=== PATIENT | male | born 1970 | race Caucasian/White ===

== ENCOUNTER 2021-02-02 10:17 | Outpatient (REF) | payer BC, SELFPAY ==
[2021-02-03 13:31] LABS: Immunoglobulin A 458 mg/dL (47-310)
[2021-02-03 21:36] LABS: Gliadin Deamidated IgA Ab 23 Units; Gliadin Deamidated IgG Ab 3 Units
[2021-02-03 21:41] LABS: Transglutaminase Ab IgG 4 U/mL; Transglutaminase IgA 3 U/mL
[2021-02-05 22:52] LABS: Endomysial IgA Antibody Negative (Negative)
== END 2021-02-02 10:18 | disposition home or self-care (01) ==
LOC: HO.10HDL 10:17
PROVIDERS: Internal Medicine; Visit Provider Dentist Oral and Maxillofacial Surgery
DX: K58.9 Irritable bowel syndrome, unspecified (principal)
CPT/HCPCS: 36415; 82784; 83516; 86255; 86256

== ENCOUNTER 2021-03-08 06:21 | Day surgery (SDC) | payer BC, SELFPAY ==
[2021-03-02 13:53] VITALS: BMI 29.4
[2021-03-08 06:35] VITALS: BP 133/85; PULSE 72; RESP 18; TEMP 36.6; O2SAT 97
[2021-03-08] MEDS: Lactated Ringers 1,000 ML 100 ML IVCONT (06:47)
--- NOTE | 2021-03-08 07:35 | P.CONAN_ITS ---
HPI - Anesthesia Eval Consult details Narrative: 50yo male patient for EGD, Colonoscopy [facility] Past Medical History Medical History (Updated 03/02/21 @ 13:51 by Carey Gama RN) Diverticulitis GERD (gastroesophageal reflux disease) History of cleft palate History of COVID-19 HTN (hypertension) Hypothyroid IBS (irritable bowel syndrome) Lyme disease Skin cancer Functional capacity: wheelchair bound Family History Family history of problems with anesthesia: No Surgical History Surgical History (Updated 03/02/21 @ 13:51 by Carey Gama RN) H/O colonoscopy History of esophagogastroduodenoscopy (EGD) History of Problems with Anesthesia: No Social History Social History Patient Tobacco Use Status: Never used Tobacco Use of substances other than those prescribed or required for medical reasons: No Have you been hit, kicked, punched, or otherwise hurt by someone within the past year? If so, by whom?: No Are you DNR?: No Advance Directives: No Advance Directives Information Provided: Yes Recently lost weight without trying: No Nutrition Risks: No Nutritional Risk Poor oral hygiene: No Meds Allergies Allergy/AdvReac Type Severity Reaction Status Date / Time No Known Allergies Allergy Verified 03/02/21 13:56 Active Medications: Current Medications Sodium Biphosphate/Sodium Phosphate (Sodium Phosphate,[place]-Dibasic 133 Ml Enema) 133 ml IA ONCE PRN PRN Reason: Poor Colonoscopy Prep Results Home Medications Medication Instructions Recorded Confirmed Last Taken Type amlodipine 5 mg tablet 5 mg PO DAILY 03/02/21 03/02/21 03/08/21 History levothyroxine 75 mcg tablet 75 mcg PO DAILY 03/02/21 03/02/21 Unknown History omeprazole 20 mg tablet,delayed 20 mg PO DAILY 03/02/21 03/02/21 Unknown History release Exam Exam Date and Time: March 08, 2021 0735 Height,Weight and Vital Signs: Height 5 ft 6.5 in Weight 83.915 kg Last Vital Signs Temp 97.8 F 03/08/21 06:35 Pulse 72 03/08/21 06:35 Resp 18 03/08/21 06:35 BP 133/85 03/08/21 06:35 Pulse Ox 97 03/08/21 06:35 Airway Mallampati Class: III (Overbite, narrow palate, crowding of teeth ? broken tooth top right back. Small mouth- may be difficult to intubate) TM Dist: >3cm Neck ROM: Full Heart: RRR Lungs: CTAB Assessment and Plan Assessment Anesthesia Assessment: Anesthesia Plan Discussed and Chart Reviewed Final Anesthetic Review Family History of Problems with Anesthesia: No History of Problems with Anesthesia: No NPO: Yes ASA Class: II Final Preanesthetic Review: No Changes in Pt Med Stat, Meds/Allgs Chart Reviewed, Consent Obtained/Reviewed and Anes Risks/Benef Reviewed Patient Risk: Low Procedure Risk: Low Assessment/Block/Sedation in SS: Assess/Block/Sedation-SS Anesthetic Plan Anesthetic Plan: MAC: Disposition: Standard PACU
[2021-03-08 08:41] VITALS: BP 118/65; PULSE 80; RESP 16; TEMP 36.9; O2SAT 98
--- NOTE | 2021-03-08 08:47 | P.BOP_ITS ---
Brief Operative Note Date of Service: 03/08/21 Pre-op diagnosis: GERD, Screening Post-op diagnosis: other (Gastric ulcer, GERD, Diverticulosis) Procedure: EGD with biopsies, Colonoscopy to the cecum Surgeon: Elder Vasquez Anesthesia: MAC Was an Injection Machine Operator used for this Procedure?: No Estimated blood loss (mL): 3.0 Pathology: other (A. Descending duodenum B. Gastric antral ulcer C. Gastric antrum D. EG Junction at 36cm) Condition: stable Disposition: PACU
[2021-03-08 08:56] VITALS: BP 100/72; PULSE 64; RESP 16; O2SAT 97
[2021-03-08 09:09] VITALS: BP 93/67; PULSE 83; RESP 16; TEMP 36.1; O2SAT 95
--- NOTE | 2021-03-08 09:26 | OP_ITS ---
SURGEON: Elder Vasquez MD INDICATIONS: The patient presents for evaluation of gastroesophageal reflux, question of celiac disease, personal history of tubular adenoma of the colon, and colorectal cancer screening. Full consent has been obtained from him for both procedures, including risks of bleeding and perforation. PREOPERATIVE DIAGNOSIS: POSTOPERATIVE DIAGNOSIS: PROCEDURE PERFORMED: ESTIMATED BLOOD LOSS: COMPLICATIONS: ANESTHESIA: Medication used, monitored anesthesia care. ASSISTANTS: SPECIMENS: PREOPERATIVE DIAGNOSES: Gastroesophageal reflux, question of celiac disease, personal history of tubular adenoma of the colon, and colorectal cancer screening. POSTOPERATIVE DIAGNOSES: Gastroesophageal reflux, question of celiac disease, personal history of tubular adenoma of the colon, and colorectal cancer screening, hiatal hernia, gastric ulcer, diverticulosis, and internal hemorrhoids. PROCEDURES PERFORMED: Esophagogastroscopy with biopsies, and colonoscopy to the cecum. DESCRIPTION OF PROCEDURE: The patient was placed in the left lateral decubitus position. The Olympus video gastroscope was passed in the posterior oropharynx and upper esophagus under direct vision. The scope was passed slowly into the distal esophagus. The gastroesophageal junction appeared at 36 cm. There was some areas of erythema and edema, but no esophagitis nor any definitive evidence of Rey's mucosa. The scope entered into the stomach. There was a small hiatal hernia. The scope was advanced to pylorus. The duodenum was cannulated to the descending portion. The duodenum including the bulb appeared normal although perhaps with some diminished number of folds. Biopsies were obtained from the second and third portions of duodenum. The scope was withdrawn back into the stomach. In the prepyloric antrum along the greater curvature was an approximately 10 mm ulcer with a clean base and grossly benign. There was good peristalsis. There was some minimal areas of gastric erythema as well. The scope was retroflexed visualizing the proximal stomach carefully, which appeared normal, without any sign of mass or ulceration. The scope was straightened. Biopsies were obtained from the margins of the ulcer and also from the gastric antrum as well. The scope was withdrawn back into the esophagus. Biopsies were obtained at the EG junction at 36 cm. Proximal to this, the esophageal mucosa appeared normal. The scope was withdrawn from the patient. He was turned around for colonoscopy. The digital rectal exam revealed no abnormalities. The Olympus video pediatric colonoscope was entered into the rectum advanced easily to the cecum with the assistance of abdominal wall pressure. Once in the cecum, I did identify normal-appearing cecal pouch with appendiceal orifice and a normal-appearing ileocecal valve. The entire cecum and ileocecal valve appeared normal. The scope was slowly withdrawn assessing all mucosal surfaces carefully. Preparation was excellent. I did not visualize any sign of polyps, colitis, nor angiodysplasia. There was a mild amount of sigmoid diverticulosis. In the rectum, scope was retroflexed visualizing internal hemorrhoids, but no other pathology. The rectal mucosa appeared normal. The scope was straightened and withdrawn from the patient. He tolerated both procedures well and was returned to the recovery area in stable condition. IMPRESSION: 1. Gastric ulcer, rule out Helicobacter pylori. 2. Hiatal hernia, gastroesophageal reflux. 3. Rule out celiac disease. 4. Diverticulosis. 5. Internal hemorrhoids. PLAN: The results of biopsies will be checked. He has been using omeprazole, but not on a daily basis. He was advised to now continue this on a daily basis and to avoid aspirin and NSAIDs on a long-term basis. If Helicobacter pylori is present in the biopsies, I would recommend treating that as well. I would recommend a repeat colonoscopy in 5 years. He was advised to see me in 2 to 3 months for followup visit as well. MD JEANIE Olivarez/JAVIER / [id number]
[2021-03-08 09:30] VITALS: BP 103/76; PULSE 84; RESP 16; TEMP 36.1; O2SAT 95
== END 2021-03-08 10:30 | disposition home or self-care (01) ==
PROVIDERS: PCP Hospitalist; Visit Provider Internal Medicine
PROC: (CPT 45378; principal; 2021-03-08 07:30)
DX: Z12.11 Encounter for screening for malignant neoplasm of colon (principal); Z86.010 Personal history of colon polyps; K57.30 Diverticulosis of large intestine without perforation or abscess without bleeding; K64.8 Other hemorrhoids; K58.9 Irritable bowel syndrome, unspecified; K21.9 Gastro-esophageal reflux disease without esophagitis; K25.9 Gastric ulcer, unspecified as acute or chronic, without hemorrhage or perforation; K29.80 Duodenitis without bleeding; K44.9 Diaphragmatic hernia without obstruction or gangrene; I10 Essential (primary) hypertension; Z87.19 Personal history of other diseases of the digestive system; Z79.899 Other long term (current) drug therapy; Z86.16 Personal history of COVID-19; Z85.828 Personal history of other malignant neoplasm of skin
CPT/HCPCS: 45378; 43239; 88305; 88342; J3010